=== PATIENT | female | born 1985 | race Asian ===

== ENCOUNTER → 2016-05-09 | Outpatient (CLI) | payer OTHER | LOC: FIMAGING 13:33 | PROVIDERS: ATTEND Obstetrics & Gynecology | DX: Z34.03 Encounter for supervision of normal first pregnancy, third trimester (principal); Z3A.32 32 weeks gestation of pregnancy ==

== ENCOUNTER → 2016-05-24 | Outpatient (CLI) | payer OTHER | LOC: FIMAGING 14:46 | PROVIDERS: ATTEND Obstetrics & Gynecology | DX: Z34.02 Encounter for supervision of normal first pregnancy, second trimester (principal); Z3A.19 19 weeks gestation of pregnancy ==

== ENCOUNTER → 2016-06-09 | Outpatient (CLI) | payer OTHER | LOC: FIMAGING 12:41 | PROVIDERS: ATTEND Obstetrics & Gynecology | DX: O36.8930 Maternal care for other specified fetal problems, third trimester, not applicable or unspecified (principal); Z3A.36 36 weeks gestation of pregnancy ==

== ENCOUNTER 2016-06-20 23:42 | Observation (INO) | payer OTHER | END 2016-06-21 00:23 | disposition home or self-care (01) | LOC: FLD 23:42 | PROVIDERS: ADMIT Obstetrics & Gynecology; ATTEND Obstetrics & Gynecology | DX: O99.89 Other specified diseases and conditions complicating pregnancy, childbirth and the puerperium (principal); Z3A.38 38 weeks gestation of pregnancy ==

== ENCOUNTER 2016-06-23 06:00 | Inpatient (IN) | payer OTHER ==
[2016-06-23] MEDS ORDERED: CITRIC ACID/SODIUM CITRATE 30 ML UDCUP PO ONE (06:19)
[2016-06-23] MEDS ORDERED: LR 500 ML IV ONE (06:19)
[2016-06-23] MEDS ORDERED: CLINDAMYCIN 900 MG/DEXTROSE 50 ML IV ONE (06:19)
[2016-06-23] MEDS ORDERED: LR 1,000 ML IV SCH (06:30)
[2016-06-23 06:48] LABS: % IMMATURE GRANULYOCYTES 1.7 % (0.0-1.1); ABSOLUTE IMMATURE GRANULOCYTES 0.14 10^3/uL (0.00-0.10); ADD DIFF? NO; ADD MORPH? NO; ADD SCAN? NO; ATYPICAL LYMPHOCYTE FLAG 0 (0-99); FRAGMENT RBC FLAG 0 (0-99); HEMATOCRIT 39.6 % (38.0-47.0); HEMOGLOBIN 13.2 g/dL (12.6-16.3); LEFT SHIFT FLG 10 (0-99); LIPEMIA HEMOLYSIS FLAG 80 (0-99); MEAN CELL HEMOGLOBIN 29.9 pg (27.9-34.1); MEAN CELL HEMOGLOBIN CONCENTR. 33.3 g/dL (32.4-36.7); MEAN CELL VOLUME 89.8 fL (81.5-99.8); MEAN PLATELET VOLUME 9.6 fL (8.7-11.7); PLATELET CLUMPS FLAG 0 (0-99); PLATELET COUNT 287 10^3/uL (150-400); RED BLOOD CELL COUNT 4.41 10^6/uL (4.18-5.33)
[2016-06-23] MEDS ORDERED: OLIVE OIL 118 ML BTL ONE (07:22)
[2016-06-23] MEDS ORDERED: LIDOCAINE 1% 30 ML SDV ONE (07:22)
[2016-06-23] MEDS ORDERED: AMMONIA AROMATIC 1 EACH AMP IH ONE (07:22)
[2016-06-23] MEDS ORDERED: OXYTOCIN 10 UNIT/ML VIAL ONE (07:22)
[2016-06-23] MEDS ORDERED: MISOPROSTOL 200 MCG TAB ONE (07:22)
[2016-06-23] MEDS ORDERED: TERBUTALINE SULFATE 1 MG/ML VIAL ONE (07:22)
[2016-06-23] MEDS ORDERED: HEMABATE 250 MCG/1 ML AMP IM ONE (07:23)
[2016-06-23] MEDS ORDERED: METHYLERGONOVINE MAL 0.2 MG/ML INJ ONE (07:24)
[2016-06-23] MEDS ORDERED: morphINE PF 5 MG/10 ML INJ ONE (08:14)
[2016-06-23] MEDS ORDERED: fentaNYL 100 MCG/2 ML INJ ONE (08:15)
[2016-06-23] MEDS ORDERED: OXYTOCIN 100 UNITS/10 ML VIAL ONE (08:48)
[2016-06-23] MEDS ORDERED: DEXAMETHASONE 4 MG/ML VIAL ONE ×2 (08:48)
[2016-06-23] MEDS ORDERED: PHENYLEPHRINE HCL 100 MCG/ML SYR ONE (08:48)
[2016-06-23] MEDS ORDERED: ONDANSETRON 4 MG/2 ML VIAL ONE (08:55)
--- NOTE | 2016-06-23 09:34 | OBPROC ---
- Delivery Pre-op Diagnoses: 1) IUP at 39 weeks, 2) Umbilical varix, 3) Elective primary C/ S Post-op Diagnoses: gregg Procedure: Primary, Low Transverse Surgeon: Quyen Holland Flight Hostess: Lala Tapia Anesthesiologist: Bowen Mora Anesthesia: Spinal Complications: Uterine Atony (mild, RX with pitocin and methergine x 1 dose) Findings: normal IV Fluid (ml): 2,700 EBL: 800 cc Drains: Other (Specify) (johns) - Harvey Info A Delivery Date: 06/23/16 Delivery Time: 08:58 Sex of : Female Score (1 Min): 8 Score (5 Min): 9 (baby weight pending at this time.)
[2016-06-23] MEDS ORDERED: HYDROCODONE/APAP 5/325 TAB PO PRN (09:35)
[2016-06-23] MEDS ORDERED: SIMETHICONE 80 MG TAB CHEW PO PRN (09:35)
[2016-06-23] MEDS ORDERED: ACETAMINOPHEN 325 MG TAB PO PRN (09:35)
[2016-06-23] MEDS ORDERED: PHENYLEPHRINE HCL 100 MCG/ML SYR IVP PRN (10:02)
[2016-06-23] MEDS ORDERED: NALOXONE HCL 0.4 MG/ML INJ IVP PRN (10:02)
[2016-06-23] MEDS ORDERED: ONDANSETRON 4 MG/2 ML VIAL IVP PRN (10:02)
--- NOTE | 2016-06-23 10:12 | PREANESOB ---
Obstetric Pre-Anesthesia Info - General Info Proposed Procedure: C Section. : 1 Para: 0 WBD: 39 - Info Status: Full Term Monitors: External FHR Baseline (bpm): 150 FHR Pattern: Reassuring - Labor Status Section History: Primary Labor Epidural: No (Umbilical cord varix.) Anesthesia ROS: No surgeries. Allergies/Adverse Reactions: Allergy/AdvReac Type Severity Reaction Status Date / Time cephalexin [From Keflex] Allergy Verified 06/20/16 23:53 shellfish derived Allergy Verified 06/23/16 06:18 Home Medications: Medication Instructions Recorded Vit27&Calcium/Iron/FA 06/20/16 [] Visit Medications: Generic Name Dose Route Start Last Admin Trade Name Freq PRN Reason Stop Dose Admin Acetaminophen 325 - 650 mg 06/23/16 09:35 Tylenol PO 12/20/16 09:34 Q4HRS PRN Pain, Mild Hydrocodone Bitart/Acetaminophen 1 - 2 tab 06/23/16 09:35 [place] 5/325 PO 07/03/16 09:34 Q4HRS PRN Pain, Moderate Docusate Sodium 100 mg 06/23/16 09:35 Colace PO 12/20/16 09:34 BID PRN Constipation Lactated Ringer's 1,000 mls @ 125 mls/hr 06/23/16 06:30 Lr IV 12/20/16 06:29 CONT BEBA Ibuprofen 600 mg 06/23/16 09:35 Motrin PO 12/20/16 09:34 Q6HRS PRN Inflammation Ketorolac Tromethamine 30 mg 06/23/16 12:00 Toradol IVP 06/24/16 06:01 Q6HRS BEBA Simethicone 80 mg 06/23/16 09:35 Mylicon PO 12/20/16 09:34 .TIDMEALS AND HS PRN Gas Discontinued Medications Generic Name Dose Route Start Last Admin Trade Name Freq PRN Reason Stop Dose Admin Ammonia (Aromatic Spirit) Confirm 06/23/16 07:22 Ammonia Aromatic Administered 06/23/16 07:23 Dose 1 each IH .STK-MED ONE Carboprost Tromethamine Confirm 06/23/16 07:23 Hemabate Administered 06/23/16 07:24 Dose 250 mcg IM .STK-MED ONE Citric Acid/Sodium Citrate 30 ml 06/23/16 06:19 Bicitra PO 06/23/16 06:20 ONCALL ONE Dexamethasone Confirm 06/23/16 08:48 Decadron Injection Administered 06/23/16 08:49 Dose 4 mg .ROUTE .STK-MED ONE Dexamethasone Confirm 06/23/16 08:48 Decadron Injection Administered 06/23/16 08:49 Dose 4 mg .ROUTE .STK-MED ONE Ephedrine Sulfate Confirm 06/23/16 07:22 Ephedrine Sulfate Administered 06/23/16 07:23 Dose 50 mg .ROUTE .STK-MED ONE Fentanyl Confirm 06/23/16 08:15 Sublimaze Administered 06/23/16 08:16 Dose 100 mcg .ROUTE .STK-MED ONE Clindamycin Phosphate/Dextrose 50 mls @ 100 mls/hr 06/23/16 06:19 06/23/16 07 :50 Cleocin 900 Mg (Premix) IV 06/23/16 06:48 50 mls ONCALL ONE Administration Protocol Lactated Ringer's 500 mls @ 0 mls/hr 06/23/16 06:19 Lr IV 06/23/16 06:20 ONCE ONE As Directed Lidocaine HCl Confirm 06/23/16 07:22 Lidocaine Hcl 1% Administered 06/23/16 07:23 Dose 30 ml .ROUTE .STK-MED ONE Methylergonovine Maleate Confirm 06/23/16 07:24 Methergine Administered 06/23/16 07:25 Dose 0.2 mg .ROUTE .STK-MED ONE Misoprostol Confirm 06/23/16 07:22 Cytotec Administered 06/23/16 07:23 Dose 800 mcg .ROUTE .STK-MED ONE Morphine Sulfate Confirm 06/23/16 08:14 Morphine Pf 5 Mg/10 Ml Administered 06/23/16 08:15 Dose 5 mg .ROUTE .STK-MED ONE Hickory Oil Confirm 06/23/16 07:22 Sweet Oil Administered 06/23/16 07:23 Dose 118 ml .ROUTE .STK-MED ONE Ondansetron HCl Confirm 06/23/16 08:55 Zofran Administered 06/23/16 08:56 Dose 8 mg .ROUTE .STK-MED ONE Oxytocin Confirm 06/23/16 07:22 Pitocin Administered 06/23/16 07:23 Dose 40 unit .ROUTE .STK-MED ONE Oxytocin Confirm 06/23/16 08:48 Pitocin Administered 06/23/16 08:49 Dose 100 units .ROUTE .STK-MED ONE Phenylephrine HCl Confirm 06/23/16 08:48 Kyle-Synephrine Administered 06/23/16 08:49 Dose 1,000 mcg .ROUTE .STK-MED ONE Terbutaline Sulfate Confirm 06/23/16 07:22 Brethine Administered 06/23/16 07:23 Dose 1 mg .ROUTE .STK-MED ONE - Anesthesia History Response to Local Anesthetics: Normal Family Anesthesia History: Negative - Focused Exam Blood Pressure: 118/77 Heart Rate: 77 Respiratory Rate: 18 Height/Weight (Nursing): Height 149.86 cm Weight 51.256 kg Physical Exam: Within normal limits. ASA Status: II Labs: 06/23/16 06:25 Patient ABO/Rh A POSITIVE 06/23/16 06:25 - Plan Anesthetic Plan: SAB Consent Signed and on Chart: Yes Patient/Guardian Understands and Agrees to Plan: Yes
--- NOTE | 2016-06-23 10:16 | POSTANESTH ---
Post Anesthetic Evaluation Cardiovascular Status: Normal, Stable Respiratory Status: Normal, Stable, Similar to Pre-op Cond. Level of Consciousness/Mental Status: Can Participate in Eval, Alert and Oriented Pain Control: Adequate, Prn Tx Ordered Nausea/Vomiting Control: Adequate, Prn Tx Ordered Complications Possibly Related to Anesthesia: None Noted (Tolerated spinal well , BP treated, comfortable for surgery, to PACU, no pain or nausea.)
[2016-06-23] MEDS ORDERED: KETOROLAC 30 MG/1 ML SDV ONE (11:43)
[2016-06-23] MEDS ORDERED: METHYLERGONOVINE MAL 0.2 MG/ML INJ IM ONE (12:00)
[2016-06-23] MEDS: KETOROLAC 30 MG/1 ML SDV IVP SCH ×2 (12:00→18:04)
--- NOTE | 2016-06-23 20:08 | GOP ---
[f rep st] OPERATIVE REPORT DATE OF OPERATION: 06/23/2016 SURGEON: Quyen Holland MD FLUE TILE PRESS OPERATOR: Lala Tapia MD. ANESTHESIA: Spinal. ANESTHESIOLOGIST: Bowen Mora MD. PREOPERATIVE DIAGNOSIS: 1. Intrauterine at 39 weeks' gestation. 2. Umbilical varix. 3. Desires elective primary delivery. POSTOPERATIVE DIAGNOSIS: 1. Intrauterine at 39 weeks' gestation. 2. Umbilical varix. 3. Desires elective primary delivery. PROCEDURE PERFORMED: Primary low transverse section. FINDINGS: 1. Delivered a female with weight pending at this dictation with Apgars of 8 and 9 in vertex presentation at 0858. 1. Normal uterus, fallopian tubes, and ovaries with slightly increased decidualization along the po sterior wall of the uterus. 2. SPECIMENS: None. ESTIMATED BLOOD LOSS: 800 cc. INDICATIONS: Patient is a 30-year-old, 1, para 0, female at 39 weeks' gestation who has bee n followed for her that has been complicated by an umbilical varix. Delivery was recommen ded at 30 weeks. The patient strongly desired an elective primary delivery. She was couns eled during multiple visits during her and desired to proceed with a delivery wit h its known risks. DESCRIPTION OF PROCEDURE: Patient was taken to the operating room where spinal anesthesia was found be adequate. Patient was prepared and draped in normal sterile fashion in the dorsal supine positi on with a left tilt. After confirmation of adequate anesthesia, a low transverse skin incision was made and carried down to the level of the fascia with the scalpel and Bovie for hemostasis. The fas juan was incised in the midline and extended laterally bilaterally with Ng scissors. The fascia wa s dissected off the rectus muscles superiorly and inferiorly with the Bovie. The peritoneal cavity was entered bluntly and stretched open. A bladder blade was placed. An incision was made in the vesicouterine peritoneum and extended laterally bilaterally with the Met zenbaum scissors. The bladder was dissected away from the lower uterine segment with digital dissec tion. A low transverse uterine incision was made and entry into the uterine cavity was noted with c lear fluid noted. The incision was extended laterally. The baby was delivered atraumatically in th e vertex presentation. The baby was bulb suctioned and cord doubly clamped and cut. The baby was h anded off to the waiting nurse practitioner. Cord blood was obtained, and the placenta was then delivered with uterine massage. The uterus was exteriorized on the maternal abdomen, and the uterus was wiped with a dry lap sponge to remove all residual membranes. The ring forceps was place d to the cervix to ensure it was open. The uterine incision was closed with a running lock stitch o f 0 Monocryl. A 2nd layer of closure was placed using the same suture for imbrication. The uterine tone was noted of slight atony and 1 dose of Methergine was administered in addition to the usual I V Pitocin. The uterine incision was then examined closely and hemostasis was assured. The posterio r cul-de-sac was irrigated with copious amounts of normal saline and noted to be clear. The uterus was placed back in maternal abdomen, and the gutters were wiped with moist lap sponges bilaterally. The uterine incision was reexamined and hemostasis was obtained with the use of the Bovie along bertha e areas of decidualization. The rectus muscles were then reapproximated with a [id number] stit ch of 0 chromic. The fascia and rectus muscle surfaces were examined closely, and hemostasis was ob tained with the use of the Bovie. The fascia was then closed with a running nonlocked stitch of 0 V icryl. The subcutaneous tissue was irrigated with copious amounts of normal saline and noted to be clear. Hemostasis was obtained with the use of the Bovie. The skin was then closed with a subcutic ular stitch of 4-0 Monocryl in a subcuticular fashion. No closure of the subcutaneous tissue was ma de since the patient had an extremely small layer of subcutaneous fat. Steri-Strips and a bandage d ressing were placed. A vaginal Crede exam was performed and a small amount of blood and clot removed from the vaginal vau lt. All sponge, lap, and needle counts were correct x2. Patient was transferred to the PACU in sta ble and good condition. FLUE TILE PRESS OPERATOR: Juju Burgess MD. COMPLICATIONS: None. DRAINS: Castillo to gravity. IV FLUIDS: 2700 cc. ESTIMATED URINE OUTPUT: 100 cc. /[id number]/MODL
[2016-06-24] MEDS: KETOROLAC 30 MG/1 ML SDV IVP SCH ×2 (00:09→06:13)
[2016-06-24 06:13] LABS: % IMMATURE GRANULYOCYTES 0.5 % (0.0-1.1); ABSOLUTE IMMATURE GRANULOCYTES 0.09 10^3/uL (0.00-0.10); ADD DIFF? NO; ADD MORPH? NO; ADD SCAN? NO; ATYPICAL LYMPHOCYTE FLAG 0 (0-99); FRAGMENT RBC FLAG 0 (0-99); HEMATOCRIT 32.9 % (38.0-47.0); LEFT SHIFT FLG 10 (0-99); LIPEMIA HEMOLYSIS FLAG 80 (0-99); MEAN CELL HEMOGLOBIN 30.1 pg (27.9-34.1); MEAN CELL HEMOGLOBIN CONCENTR. 33.4 g/dL (32.4-36.7); MEAN CELL VOLUME 89.9 fL (81.5-99.8); MEAN PLATELET VOLUME 9.4 fL (8.7-11.7); PLATELET CLUMPS FLAG 10 (0-99); PLATELET COUNT 291 10^3/uL (150-400); RED BLOOD CELL COUNT 3.66 10^6/uL (4.18-5.33)
--- NOTE | 2016-06-24 08:14 | SOAPPROG ---
SOAP Progress Note Assessment/Plan: Assessment: 30 y.o. female s/p POD #1 s/p primary C/S. Recovering well with good pain control. well. Incision CDI. Plan: Routine postop/ orders. D/C johns, bandage, IVBC and plexi-pulse stockings. Encourage ambulation. consult. 06/24/16 08:10 Subjective: Reports experiencing good pain control and minimal vaginal bleeding. . Incision CDI. Appropriate mood with good support system. Objective: Vital Signs Temp Pulse Resp BP Pulse Ox 36.3 C 78 16 98/60 L 92 06/24/16 03:45 06/24/16 06:00 06/24/16 03:45 06/24/16 03:45 06/24/16 06:00 Laboratory Results 06/24/16 05:55 06/23/16 06/24/16 06/25/16 05:59 05:59 05:59 Intake Total 8100 Output Total 5200 Balance 2900 - Time Spent With Patient Time Spent With Patient: 20 minutes - Pending Discharge Pending Discharge Within 24 Hours: No Pending Discharge Within 48 Hours: No Pending Discharge Date: 06/26/16 Physical Exam - Physical Exam General Appearance: WD/WN, alert, no apparent distress EENT: normal ENT inspection Neck: non-tender, full range of motion, normal inspection Respiratory: lungs clear, normal breath sounds Cardiac/Chest: regular rate, rhythm Abdomen: non-tender, soft Pelvic Exam: normal external exam Rectal: deferred Back: Normal inspection Skin: normal color, warm/dry Lymphatic: no adenopathy Extremities: non-tender, normal inspection Neuro/Psych: alert, normal mood/affect, oriented x 3 ICD10 Worksheet Patient Problems: Problems Problem Status Onset Status post primary low transverse section Acute - ICD10 Problem Qualifiers (1) Status post primary low transverse section
[2016-06-24] MEDS: IRON POLYSAC/IRON HEME 28 MG TAB PO SCH ×2 (10:24→22:42)
[2016-06-24] MEDS ORDERED: METHYLERGONOVINE MAL 0.2 MG/ML INJ IM ONE (12:00)
[2016-06-24] MEDS: IBUPROFEN 600 MG TAB PO PRN ×2 (17:18→22:42)
[2016-06-24] MEDS: DOCUSATE SODIUM 100 MG CAP PO PRN (22:42)
[2016-06-25] MEDS: IBUPROFEN 600 MG TAB PO PRN ×4 (04:23→23:37)
[2016-06-25] MEDS: IRON POLYSAC/IRON HEME 28 MG TAB PO SCH ×2 (09:00→22:04)
--- NOTE | 2016-06-25 11:44 | OBPROG ---
OBG Progress Note Assessment/Plan: Assessment: 30 y/o POD#2 s/p primary LTCS - hemodynamically stable and doing well Plan: 1) Continue routine PP care 2) A+/RI 3) RX for APNO written 4) Anticipate d/c home tomorrow 06/25/16 11:44 Subjective: Pt ambulating, tolerating regular diet, voiding spontaneously, pain well controlled, and passing flatus. Lochia diminishing. Small red drainage from one spot of incision this AM after shower. No complaints. Breast pumping. Objective: 06/24/16 05:55 Patient ABO/Rh A POSITIVE 06/23/16 06:25 Temp Pulse Resp BP Pulse Ox 36.5 C 65 16 102/61 94 06/25/16 01:35 06/25/16 01:35 06/25/16 01:35 06/25/16 01:35 06/25/16 01:35 - Physical Exam General Appearance: WD/WN, alert, no apparent distress Respiratory: lungs clear Cardiac/Chest: regular rate, rhythm Abdomen: normal bowel sounds, non-tender, soft, incision (c/d/i, small dried serosanginous drainage from right side of incision. No active bleeding, steri strips intact) ICD10 Worksheet Patient Problems: Problems Problem Status Onset Status post primary low transverse section Acute
[2016-06-25] MEDS: DOCUSATE SODIUM 100 MG CAP PO PRN (17:46)
[2016-06-26] MEDS: IBUPROFEN 600 MG TAB PO PRN ×2 (05:48→11:40)
[2016-06-26] MEDS: DOCUSATE SODIUM 100 MG CAP PO PRN (09:20)
[2016-06-26] MEDS: IRON POLYSAC/IRON HEME 28 MG TAB PO SCH (09:20)
[2016-06-26 10:56] VITALS: BP 115/68; PULSE 74; RESP 17; TEMP 97; O2SAT 98
[2016-06-26] MEDS ORDERED: LACTULOSE 20 GM/30 ML UDCUP PO PRN (12:29)
[2016-06-26] MEDS ORDERED: BISACODYL 10 MG SUPP PR PRN (12:29)
[2016-06-26] MEDS ORDERED: MAGNESIUM HYDROXIDE 30 ML UDCUP PO PRN (12:29)
[2016-06-26] MEDS ORDERED: POLYETHYLENE GLYCOL 3350 17 GM PKT PO PRN (12:29)
--- NOTE | 2016-06-26 12:29 | OBPROG ---
OBG Progress Note Assessment/Plan: Assessment: 30 y/o POD#3 s/p primary LTCS - hemodynamically stable and doing well Plan: 1) Ready for discharge home 2) A+/RI 3) RX for norco, motrin. 4) F/U in 2 weeks or sooner prn. Bleeding/pain/fever precautions 06/26/16 12:28 Subjective: Pt is feeling well, ambulating, voiding, tolerating regular diet, passing flatus , no BM yet. Breast feeding going well except pain on right side; using APNO. Advised nipple shield. Pain well controlled. Objective: 06/24/16 05:55 Patient ABO/Rh A POSITIVE 06/23/16 06:25 Temp Pulse Resp BP Pulse Ox 36.1 C 74 17 115/68 98 06/26/16 10:30 06/26/16 10:30 06/26/16 10:30 06/26/16 10:30 06/26/16 10:30 Uterine Position/Fundal Height: Umbilicus -1 Uterine Tone: Firm - Physical Exam General Appearance: WD/WN, alert, no apparent distress Respiratory: lungs clear Cardiac/Chest: regular rate, rhythm Abdomen: normal bowel sounds, non-tender, soft, incision (c/d/i, steri strips intact) ICD10 Worksheet Patient Problems: Problems Problem Status Onset Status post primary low transverse section Acute
[2016-06-26] MEDS ORDERED: SENNOSIDES/DOCUSATE SODIUM TAB PO SCH (21:00)
== END 2016-06-26 13:00 | disposition home or self-care (01) | DRG 765 ==
LOC: FLD 06:00 → FOB 19:41
PROVIDERS: ADMIT Obstetrics & Gynecology; ATTEND Obstetrics & Gynecology
PROC: 10D00Z1 Extraction of Products of Conception, Low, Open Approach (ICD-10-PCS; principal; 2016-06-23)
DX: O69.89X0 Labor and delivery complicated by other cord complications, not applicable or unspecified (principal); O72.1 Other immediate postpartum hemorrhage; O99.820 Streptococcus B carrier state complicating pregnancy; Z3A.39 39 weeks gestation of pregnancy; Z37.0 Single live birth
CPT/HCPCS: J1100; J1885; J2210; J2274; J2370; J2405; J2590; J3010; J3105

== ENCOUNTER → 2017-09-11 | Outpatient (CLI) | payer OTHER | LOC: FIMAGING 12:03 | PROVIDERS: ATTEND Obstetrics & Gynecology | DX: O09.292 Supervision of pregnancy with other poor reproductive or obstetric history, second trimester (principal); Z3A.19 19 weeks gestation of pregnancy ==